=== PATIENT | male | born 1995 | race Caucasian/White ===

== ENCOUNTER 2018-11-04 01:16 | Emergency (ER) | payer SELFPAY ==
--- NOTE | 2018-11-04 01:19 | ER Report ---
History and Physical Time Seen By MD: 01:19 HPI/ROS CHIEF COMPLAINT: Alcohol poisoning HISTORY OF PRESENT ILLNESS: 23-year-old male brought in by 2 friends with alcohol poisoning. Patient's been vomiting repeatedly having dry heaves. He smells of smoke. His friends state he does not drink very much. He drank a lot tonight. Friends deny other drug ingestions. Friends deny falls or trauma. REVIEW OF SYSTEMS: Respiratory: No cough, no dyspnea. Cardiovascular: No chest pain, no palpitations. Gastrointestinal: As above Musculoskeletal: No back pain. Allergies: Coded Allergies: No Known Drug Allergies (Unverified , 11/04/18) Reviewed Nurses Notes: Yes Old Medical Records Reviewed: Yes Constitutional Vital Sign - Last 24 Hours 11/04/18 11/04/18 11/04/18 11/04/18 01:21 01:21 01:30 01:46 Temp 97.6 Pulse 88 Resp 12 B/P (MAP) 119/78 119/78 (92) 124/67 (86) Pulse Ox 94 96 O2 Delivery Room Air 11/04/18 11/04/18 11/04/18 02:00 02:21 02:30 Pulse 72 B/P (MAP) 106/52 (70) 110/65 (80) Pulse Ox 98 Intake and Output 11/03/18 11/03/18 11/04/18 14:59 22:59 06:59 Intake Total 1000 ml Balance 1000 ml Physical Exam Vital signs stable, afebrile, pulse ox normal General Appearance: The patient is alert, has no immediate need for airway protection and no current signs of toxicity. No acute distress, slurred speech consistent with alcohol intoxication, palpation of the head and neck without tenderness or trauma. HEENT: Pupils equal and round no injection. EOMI, PERRLA. TMs normal, oropharynx without dental trauma Respiratory: Chest is non tender, lungs are clear to auscultation. No chest wall tenderness Cardiac: regular rate and rhythm Gastrointestinal: Abdomen is soft and non tender, no masses, bowel sounds normal. Musculoskeletal: Neck: Neck is supple and non tender. Extremities have full range of motion and are non tender. No evidence of trauma Skin: No rashes or lesions. DIFFERENTIAL DIAGNOSIS: After history and physical exam differential diagnosis was considered for alcohol poisoning, alcohol intoxication Medical Decision Making Data Points Laboratory Hematology Test 11/04/18 01:28 Serum Alcohol 167 mg/dl Chemistry Test 11/04/18 01:28 Serum Alcohol 167 mg/dl Toxicology Test 11/04/18 01:28 Serum Alcohol 167 mg/dl ED Course/Re-evaluation Clinical Indication for ER IV: Hydration, IV Access ED Course Patient was admitted to an examination room. H&P was done. The differential diagnoses was considered. On clinical examination, patient appears grossly alcohol intoxicated. Friends deny other drug ingestion. Patient's treated with IV fluid hydration with normal saline. He is given Zofran 8 mg IV. Blood alcohol is sent off to lab returns at 167. After approximately 2 hours of observation, the patient's discharged home in the care of his friends. Decision to Disposition Date: November 04, 2018 Decision to Disposition Time: 01:53 Depart Departure Latest Vital Signs Vital Signs Date Time Temp Pulse Resp B/P (MAP) Pulse Ox O2 Delivery O2 Flow Rate FiO2 11/04/18 02:30 110/65 (80) 11/04/18 02:21 72 98 11/04/18 01:21 97.6 12 Room Air Impression: Primary Impression: Alcohol poisoning Condition: Improved Disposition: HOME OR SELF-CARE Patient Instructions: Abuse of Alcohol (ED) Additional Instructions: Avoid drinking to excess Problem Qualifiers Primary Impression: Alcohol poisoning Encounter type: initial encounter Injury intent: accidental or unintentional Qualified Codes: T51.91XA - Toxic effect of unspecified alcohol, accidental (unintentional), initial encounter ABRAN VILLA DO November 04, 2018 01:19
[2018-11-04] MEDS ORDERED: ONDANSETRON 4 MG/2 ML VIAL IVP ONE (01:25)
[2018-11-04] MEDS ORDERED: NS(*) 0.9% 1000 ML BAG 1,000 ML IV ONE (01:25)
[2018-11-04 02:30] VITALS: BP 110/65
== END 2018-11-04 02:43 | disposition home or self-care (01) ==
LOC: ER 01:45
DX: T51.91XA Toxic effect of unspecified alcohol, accidental (unintentional), initial encounter (principal)
CPT/HCPCS: 80320; 96361; 96374; 99283; J2405; J7030